=== PATIENT | male | born 1965 | race African-American/Black ===

== ENCOUNTER 2019-09-28 14:16 | Emergency (ER) | payer MEDICAID ==
[~2019-09-28] VITALS: Ht 180.3 cm; Wt 77.0 kg
[2019-09-28 16:57] LABS: CLARITY URINE CLOUDY (CLEAR); COLOR URINE YELLOW (YELLOW); KETONES URINE TRACE (NEGATIVE); LEUKOCYTE ESTERASE URINE 2+ (NEGATIVE); NITRITE URINE NEGATIVE (NEGATIVE); OCCULT BLOOD URINE 3+ (NEGATIVE); PROTEIN URINE 2+ (NEGATIVE); UROBILINOGEN URINE 0.2 E.U./dL (0.2-1.0)
[2019-09-28] MEDS ORDERED: AMOXICILLIN 500 MG CAPSULE PO ONE (17:15)
[2019-09-28 17:34] VITALS: BP 156/83
== END 2019-09-28 17:35 | disposition home or self-care (01) ==
LOC: ER 14:16
DX: N30.00 Acute cystitis without hematuria (principal)
CPT/HCPCS: 81003; 99283

== ENCOUNTER 2024-11-05 08:09 | Emergency (ER) | payer SELFPAY ==
[~2024-11-05] VITALS: Ht 177.8 cm; Wt 68.0 kg
[2024-11-05 08:11] VITALS: O2SAT 100
[2024-11-05] MEDS ORDERED: NIRM1TAB11 PO (08:28)
[2024-11-05] MEDS ORDERED: BENZ200C52 MT (08:28)
[2024-11-05 08:34] VITALS: BP 140/80; PULSE 77; RESP 16; TEMP 36.8; O2SAT 100
[2024-11-05 09:59] LABS: INFLUENZA TYPE A Presumptive Negative (Pres. Neg.)
[2024-11-05 10:00] LABS: INFLUENZA TYPE B Presumptive Negative (Pres. Neg.)
[2024-11-05 10:01] LABS: RESPIRATORY SYNCYTIAL VIRUS Not Detected (Not Detectd)
== END 2024-11-05 08:35 | disposition home or self-care (01) ==
LOC: ER 08:09 → EDBD 08:09 → ER 08:35
DX: J06.9 Acute upper respiratory infection, unspecified (principal); Z79.899 Other long term (current) drug therapy; Z20.822 Contact with and (suspected) exposure to COVID-19
CPT/HCPCS: 87420; 87426; 87804; 99283